=== PATIENT | female | born 1970 | race Caucasian/White ===

== ENCOUNTER → 2018-08-02 | Outpatient (CLI) | payer OTHER ==
--- NOTE | 2018-08-02 19:57 | Diagnostic Imaging Report ---
Ventilation/perfusion lung scan Clinical Information: 48 F with sharp right pleuritic chest pain Comparison: None Discussion: Xenon-133 gas 15 mCi was administered via inhalation. Dynamic images of the lungs in the posterior projection were obtained through single breath, equilibrium, and washout phases. Distribution of tracer activity appears physiologic throughout the lungs.. There are no segmental ventilatory defects. Washout of tracer is mildly delayed with no evidence of air trapping. Perfusion images of the lungs were obtained in multiple projections following intravenous administration of approximately 6.6 mCi of Tc-99m MAA. Distribution of tracer appears physiologic throughout the lungs. The contours of the lungs are well demarcated. There are no segmental perfusion defects of any size. The cardiomediastinal silhouette is unremarkable. Impression: 1. Scan findings represent a VERY LOW probability for acute pulmonary embolic disease based on the PIOPED II criteria. 2. Mild obstructive lung disease. Signed by: Dr. Maureen Crowell M.D. on 08/02/2018 7:53 PM
== END ==
LOC: NM 15:57
PROVIDERS: ATTEND Internal Medicine Critical Care Medicine
DX: R07.9 Chest pain, unspecified (principal)
CPT/HCPCS: 78582; A9540; A9558